=== PATIENT | male | born 1965 | race Caucasian/White ===

== ENCOUNTER 2017-04-07 02:42 | Emergency (ER) | payer OTHER ==
[2017-04-07 03:45] VITALS: BP 111/71
== END 2017-04-07 03:45 | disposition other institution (70) ==
LOC: ED 02:42
DX: S01.511A Laceration without foreign body of lip, initial encounter (principal); X58.XXXA Exposure to other specified factors, initial encounter; Y93.89 Activity, other specified; Y92.89 Other specified places as the place of occurrence of the external cause; Y99.8 Other external cause status